=== PATIENT | male | born 1940 | race Caucasian/White ===

== ENCOUNTER 2024-06-22 15:23 | Inpatient (IN) | payer MEDICARE, OTHER ==
[~2024-06-22] VITALS: Ht 165.1 cm; Wt 68.9 kg
[2024-06-22] MEDS ORDERED: ALBUTEROL FS 2.5 MG/3 ML VIAL.NEB ONE (16:00)
[2024-06-22] MEDS: ALBUTEROL FS 2.5 MG/3 ML VIAL.NEB NEB ONE (16:09)
[2024-06-22 16:12] VITALS: O2SAT 97
[2024-06-22 16:19] VITALS: O2SAT 100
[2024-06-22 16:40] LABS: CARBON DIOXIDE 27 mmol/L (21-32); CHLORIDE 105 mmol/L (98-107); CREATININE 1.2 mg/dL (0.6-1.3); GLUCOSE 79 mg/dL (74-106); POTASSIUM 4.1 mmol/L (3.5-5.1); SODIUM SERUM 141 mmol/L (136-145); UREA NITROGEN, BLOOD 23 mg/dL (7-18)
[2024-06-22 16:48] LABS: LACTIC ACID 1.6 mmol/L (0.4-2.0)
[2024-06-22 16:52] LABS: BASOPHILS # (AUTO) 0.1 K/uL (0.0-0.2); BASOPHILS % (AUTO) 1.2 % (0.0-2.0); EOSINOPHILS % (AUTO) 11.6 % (0.0-6.0); HEMATOCRIT 35 % (39-51); HEMOGLOBIN 11.8 g/dL (13.5-17.5); LYMPHOCYTES # (AUTO) 2.8 K/uL (0.8-4.8); LYMPHOCYTES % (AUTO) 32.7 % (20.0-44.0); MEAN CORPUSCULAR HEMOGLOBIN 32 PG (26.0-33.0); MEAN CORPUSCULAR HGB CONC 34 g/dl (31.0-36.0); MEAN CORPUSCULAR VOLUME 93 fL (80-96); MONOCYTES % (AUTO) 12.2 % (2.0-12.0); NEUTROPHILS # (AUTO) 3.6 K/uL (1.8-8.9); NEUTROPHILS % (AUTO) 42.3 % (43.0-81.0); PLATELET COUNT (AUTO) 254 K/uL (150-450); RED BLOOD CELL COUNT(AUTO) 3.74 MIL/uL (4.5-6.0); RED CELL DISTRIBUTION WIDTH 14.2 % (11.5-15.0); WHITE BLOOD COUNT (AUTO) 8.5 K/uL (4.3-11.0)
[2024-06-22 16:53] LABS: ALANINE AMINOTRANSFERASE 17 U/L (12-78); ALBUMIN 3.6 g/dL (3.4-5.0); ALKALINE PHOSPHATASE 84 U/L (46-116); ASPARTATE AMINOTRANSFERASE 16 U/L (15-37); BILIRUBIN,TOTAL 0.4 mg/dL (0.2-1.0); NT-PRO BNP 1059 pg/mL (0-125); TOTAL PROTEIN, SERUM 8.1 g/dL (6.4-8.2)
[2024-06-22] MEDS ORDERED: IV NS 0.9% 250 ML IV ONE ×2 (17:44→17:58)
[2024-06-22] MEDS ORDERED: IOHEXOL-350 100 ML VIAL IV ONE ×2 (17:44→17:58)
[2024-06-22] MEDS ORDERED: CT SWABBABLE VALVE TRANS SET 1 EA INFUS.SET MC ONE (17:44)
[2024-06-22] MEDS ORDERED: ALBU18HF2 IH (19:28)
[2024-06-22] MEDS ORDERED: ASCO500T21 PO (19:28)
[2024-06-22] MEDS ORDERED: TAMS-12 PO (19:28)
[2024-06-22] MEDS ORDERED: HYDR-3980 PO (19:28)
[2024-06-22] MEDS ORDERED: CLOP75TA15 PO (19:28)
[2024-06-22] MEDS ORDERED: ZINC50TA69 PO (19:28)
[2024-06-22] MEDS ORDERED: ATOR20TA PO (19:28)
[2024-06-22] MEDS ORDERED: BREYNA IH (19:28)
[2024-06-22] MEDS ORDERED: ATEN50TA PO (19:28)
[2024-06-22 19:29] LABS: ABG BASE EXCESS -1.3 mmol/L (-2.0-3.0); ABG OXYGEN SATURATION 92.7 % (94.0-98.0); ABG PCO2 35.4 mmHg (35.0-48.0); ABG PH 7.423 (7.350-7.450); ABG PO2 64.9 mmHg (83.0-108.0); ABG TOTAL HEMOGLOBIN 12.6 G/dL (13.5-17.5); COHb 0.3 % (0.5-1.5); O2Hb 92.4 % (94.0-97.0); SITE, ABG RIGHT BRACHIAL
[2024-06-22] MEDS ORDERED: methylPREDNISolone SOD SUCC 125 MG/2ML VIAL ONE (19:29)
[2024-06-22] MEDS: methylPREDNISolone SOD SUCC 125 MG/2ML VIAL IV ONE (19:36)
[2024-06-22] MEDS ORDERED: ALBUTEROL FS 2.5 MG/0.5 ML VIAL.NEB NEB PRN (21:00)
[2024-06-22] MEDS ORDERED: methylPREDNISolone SOD SUCC 40 MG/ML VIAL IV SCH (21:00)
[2024-06-22] MEDS ORDERED: ACETAMINOPHEN 325 MG TABLET PO PRN (21:00)
[2024-06-22] MEDS ORDERED: ZOLPIDEM TARTRATE 5 MG TABLET PO PRN (21:00)
[2024-06-22] MEDS ORDERED: MAG HYDROX/AL HYDROX/SIMETH 30 ML UDC PO PRN (21:00)
[2024-06-22] MEDS ORDERED: MAGNESIUM HYDROXIDE 30 ML UDC PO PRN (21:00)
[2024-06-22] MEDS ORDERED: HYDROCODONE/APAP 10/325MG TABLET PO PRN (21:00)
[2024-06-22] MEDS ORDERED: IPRATROPIUM NEB FS 0.5 MG/2.5 ML AMPUL.NEB NEB PRN (21:00)
[2024-06-22] MEDS ORDERED: ONDANSETRON HCL/PF 4 MG/2 ML VIAL IVP PRN (21:00)
[2024-06-22 21:55] VITALS: BP 127/68; TEMP 98; O2SAT 93
[2024-06-22] MEDS ORDERED: Medication Not On Formulary EA (Atorvastatin Calcium (Lipitor) 20 MG) PO SCH (22:00)
[2024-06-23] VITALS (11 sets, daily range): BP systolic 116–145; BP diastolic 51–73; TEMP 97.7–98.5; O2SAT 93–99
[2024-06-23] MEDS: methylPREDNISolone SOD SUCC 40 MG/ML VIAL IV SCH (04:19)
[2024-06-23] MEDS ORDERED: methylPREDNISolone SOD SUCC 125 MG/2ML VIAL IV SCH (05:00)
[2024-06-23 06:33] LABS: BASOPHILS % (AUTO) 0.3 % (0.0-2.0); HEMATOCRIT 39 % (39-51); HEMOGLOBIN 12.9 g/dL (13.5-17.5); LYMPHOCYTES # (AUTO) 1.2 K/uL (0.8-4.8); LYMPHOCYTES % (AUTO) 32.2 % (20.0-44.0); MEAN CORPUSCULAR HEMOGLOBIN 31 PG (26.0-33.0); MEAN CORPUSCULAR HGB CONC 33 g/dl (31.0-36.0); MEAN CORPUSCULAR VOLUME 93 fL (80-96); MONOCYTES % (AUTO) 0.7 % (2.0-12.0); NEUTROPHILS # (AUTO) 2.5 K/uL (1.8-8.9); NEUTROPHILS % (AUTO) 66.8 % (43.0-81.0); PLATELET COUNT (AUTO) 266 K/uL (150-450); RED BLOOD CELL COUNT(AUTO) 4.16 MIL/uL (4.5-6.0); WHITE BLOOD COUNT (AUTO) 3.7 K/uL (4.3-11.0)
[2024-06-23 06:47] LABS: CALCIUM, SERUM 9.7 mg/dL (8.5-10.1); CARBON DIOXIDE 23 mmol/L (21-32); CHLORIDE 103 mmol/L (98-107); CREATININE 1.7 mg/dL (0.6-1.3); GLUCOSE 263 mg/dL (74-106); MAGNESIUM 2.3 mg/dL (1.8-2.4); PHOSPHORUS 2.4 mg/dL (2.5-4.9); SODIUM SERUM 140 mmol/L (136-145); UREA NITROGEN, BLOOD 25 mg/dL (7-18)
[2024-06-23] MEDS: ALBUTEROL FS 2.5 MG/0.5 ML VIAL.NEB NEB SCH (07:35)
[2024-06-23] MEDS: IPRATROPIUM NEB FS 0.5 MG/2.5 ML AMPUL.NEB NEB SCH (07:35)
[2024-06-23] MEDS: ZINC SULFATE 220 MG CAPSULE PO SCH (08:15)
[2024-06-23] MEDS: ASCORBIC ACID 500 MG TABLET PO SCH (08:15)
[2024-06-23] MEDS ORDERED: BREYNA IH SCH (09:00)
[2024-06-23] MEDS ORDERED: Medication Not On Formulary EA (Zinc 50 MG) PO SCH (09:00)
[2024-06-23] MEDS: K PHOS NEUTRAL 250 MG TABLET PO ONE (15:48)
[2024-06-23] MEDS: ATORVASTATIN 10 MG TABLET PO SCH (22:09)
[2024-06-23] MEDS: ENOXAPARIN SODIUM 40 MG/0.4 ML DISP.SYRIN SQ SCH (22:12)
[2024-06-24] VITALS (14 sets, daily range): BP systolic 108–120; BP diastolic 48–55; TEMP 97.3–98.3; O2SAT 95–98
[2024-06-24 06:31] LABS: BASOPHILS % (AUTO) 0.1 % (0.0-2.0); HEMATOCRIT 33 % (39-51); HEMOGLOBIN 10.9 g/dL (13.5-17.5); LYMPHOCYTES % (AUTO) 7.8 % (20.0-44.0); MEAN CORPUSCULAR HEMOGLOBIN 31 PG (26.0-33.0); MEAN CORPUSCULAR HGB CONC 33 g/dl (31.0-36.0); MEAN CORPUSCULAR VOLUME 94 fL (80-96); MONOCYTES # (AUTO) 0.1 K/uL (0.1-1.30); MONOCYTES % (AUTO) 1.2 % (2.0-12.0); NEUTROPHILS # (AUTO) 11.5 K/uL (1.8-8.9); NEUTROPHILS % (AUTO) 90.9 % (43.0-81.0); PLATELET COUNT (AUTO) 237 K/uL (150-450); RED BLOOD CELL COUNT(AUTO) 3.49 MIL/uL (4.5-6.0); RED CELL DISTRIBUTION WIDTH 14.1 % (11.5-15.0); WHITE BLOOD COUNT (AUTO) 12.6 K/uL (4.3-11.0)
[2024-06-24 06:41] LABS: CALCIUM, SERUM 8.8 mg/dL (8.5-10.1); CARBON DIOXIDE 19 mmol/L (21-32); CHLORIDE 105 mmol/L (98-107); CREATININE 1.6 mg/dL (0.6-1.3); GLUCOSE 154 mg/dL (74-106); POTASSIUM 4.5 mmol/L (3.5-5.1); SODIUM SERUM 138 mmol/L (136-145); UREA NITROGEN, BLOOD 46 mg/dL (7-18)
[2024-06-24] MEDS: TAMSULOSIN 0.4 MG CAP.SR.24H PO SCH (08:25)
[2024-06-24] MEDS: IV NS 0.9% 1,000 ML IV ONE (09:33)
[2024-06-25] VITALS (8 sets, daily range): BP systolic 116–122; BP diastolic 47–53; TEMP 97.5–98.6; O2SAT 95–100
[2024-06-25 06:36] LABS: BASOPHILS % (AUTO) 0.1 % (0.0-2.0); HEMATOCRIT 32 % (39-51); HEMOGLOBIN 10.7 g/dL (13.5-17.5); LYMPHOCYTES # (AUTO) 1.2 K/uL (0.8-4.8); LYMPHOCYTES % (AUTO) 9.3 % (20.0-44.0); MEAN CORPUSCULAR HEMOGLOBIN 32 PG (26.0-33.0); MEAN CORPUSCULAR HGB CONC 34 g/dl (31.0-36.0); MEAN CORPUSCULAR VOLUME 93 fL (80-96); MONOCYTES # (AUTO) 0.1 K/uL (0.1-1.30); MONOCYTES % (AUTO) 1.1 % (2.0-12.0); NEUTROPHILS # (AUTO) 11.5 K/uL (1.8-8.9); NEUTROPHILS % (AUTO) 89.5 % (43.0-81.0); PLATELET COUNT (AUTO) 228 K/uL (150-450); RED BLOOD CELL COUNT(AUTO) 3.39 MIL/uL (4.5-6.0); RED CELL DISTRIBUTION WIDTH 14.2 % (11.5-15.0); WHITE BLOOD COUNT (AUTO) 12.8 K/uL (4.3-11.0)
[2024-06-25 07:30] LABS: ALANINE AMINOTRANSFERASE 15 U/L (12-78); ALKALINE PHOSPHATASE 61 U/L (46-116); ASPARTATE AMINOTRANSFERASE 16 U/L (15-37); BILIRUBIN,TOTAL 0.3 mg/dL (0.2-1.0); CALCIUM, SERUM 8.8 mg/dL (8.5-10.1); CARBON DIOXIDE 24 mmol/L (21-32); CHLORIDE 107 mmol/L (98-107); CREATININE 1.4 mg/dL (0.6-1.3); GLUCOSE 142 mg/dL (74-106); MAGNESIUM 2.2 mg/dL (1.8-2.4); PHOSPHORUS 4.6 mg/dL (2.5-4.9); POTASSIUM 4.3 mmol/L (3.5-5.1); SODIUM SERUM 141 mmol/L (136-145); TOTAL PROTEIN, SERUM 6.6 g/dL (6.4-8.2); UREA NITROGEN, BLOOD 47 mg/dL (7-18)
[2024-06-25 07:47] LABS: APPEARANCE,URINE CLEAR (CLEAR); BILIRUBIN,URINE NEGATIVE (NEGATIVE); BLOOD, URINE TRACE-INTA Ery/uL (NEGATIVE); COLOR,URINE YELLOW (YELLOW); KETONES,URINE NEGATIVE (NEGATIVE); LEUKOCYTE ESTERASE ,URINE NEGATIVE (NEGATIVE); NITRITE, URINE NEGATIVE (NEGATIVE); PROTEIN,URINE NEGATIVE (NEGATIVE); UGLUCOSE NEGATIVE (NEGATIVE); UROBILINOGEN,URINE 0.2 EU/dL (0.2)
[2024-06-25 08:07] LABS: ADD URINE CULTURE NO; BACTERIA,URINE Rare /HPF (None Seen); SQUAMOUS EPITHELIAL CELL,UR None Seen /HPF (None Seen); WBC,URINE 0-2 /HPF (0-3)
[2024-06-25 08:09] LABS: EOSINOPHIL,URINE None Seen
[2024-06-25 08:15] LABS: CREATININE, URINE 54.9 MG/DL (30.0-125.0); URINE TOTAL PROTEIN 8.3 mg/dL (0-11.9)
[2024-06-25] MEDS ORDERED: AZIT1PAC9 PO (09:49)
[2024-06-25] MEDS ORDERED: PRED50TA PO (09:49)
[2024-06-25 09:59] LABS: CREATINE KINASE, TOTAL 151 U/L (39-308)
[2024-06-26 10:09] LABS: PTH, INTACT 105 pg/mL (15-65)
[2024-06-29 05:09] LABS: *SPE ALBUMIN 3.1 g/dL (2.9-4.4); *SPE ALPHA-1-GLOBULIN 0.2 g/dL (0.0-0.4); *SPE ALPHA-2-GLOBULIN 1.1 g/dL (0.4-1.0); *SPE BETA GLOBULIN 0.9 g/dL (0.7-1.3); *SPE GLOBULIN, TOTAL 3.2 g/dL (2.2-3.9); *SPE M-SPIKE Not Observed g/dL (Not Observed); *SPE PROTEIN TOTAL 6.3 g/dL (6.0-8.5)
== END 2024-06-25 15:27 | disposition home or self-care (01) | DRG 202 ==
LOC: ER 15:27 → TELE1 21:20
PROVIDERS: ATTEND Internal Medicine
DX: J45.901 Unspecified asthma with (acute) exacerbation (principal); I26.99 Other pulmonary embolism without acute cor pulmonale; J96.01 Acute respiratory failure with hypoxia; N17.0 Acute kidney failure with tubular necrosis; I50.30 Unspecified diastolic (congestive) heart failure; J44.1 Chronic obstructive pulmonary disease with (acute) exacerbation; I13.0 Hypertensive heart and chronic kidney disease with heart failure and stage 1 through stage 4 chronic kidney disease, or unspecified chronic kidney disease; D64.9 Anemia, unspecified; E78.5 Hyperlipidemia, unspecified; N18.9 Chronic kidney disease, unspecified; Z87.440 Personal history of urinary (tract) infections; Z95.1 Presence of aortocoronary bypass graft; I25.10 Atherosclerotic heart disease of native coronary artery without angina pectoris; Z95.5 Presence of coronary angioplasty implant and graft; Z20.822 Contact with and (suspected) exposure to COVID-19
CPT/HCPCS: 36415; 36600; 71045-TC; 76770-TC; 80048-TC; 80053-TC; 81001; 82550-TC; 82570-TC; 82803-TC; 83605-TC; 83735-TC; 83880; 83970; 84100-TC; 84155; 84165; 84300-TC; 84484-TC; 85025-TC; 85378-TC; 87040-TC; 93307-TC; 94760-TC; 94762-TC; 94799-TC; 97116-TC; 97530-TC; A4223; G0378; J1650; J2919; J7030; J7050; Q9967